=== PATIENT | male | born 1975 | race Caucasian/White ===

== ENCOUNTER → 2024-04-21 06:28 | Day surgery (SDC) | payer BC, SELFPAY | LOC: GI 06:28 | PROVIDERS: ATTENDING PHYSICIAN Internal Medicine Gastroenterology | DX: Z12.11 Encounter for screening for malignant neoplasm of colon (principal); K64.8 Other hemorrhoids; K57.30 Diverticulosis of large intestine without perforation or abscess without bleeding; D12.4 Benign neoplasm of descending colon; D12.5 Benign neoplasm of sigmoid colon | CPT/HCPCS: 45385; 45380; 88305 ==

== ENCOUNTER 2025-04-05 18:50 | Inpatient (IN) | payer BC, SELFPAY ==
[2025-04-04 23:19] VITALS: BP 127/107
[2025-04-04 23:44] LABS: Hematocrit 45.7 % (39.0-52.0); Hemoglobin 16.3 g/dL (13.0-18.0); Mean Corp Hgb Conc. 35.7 g/dL (33.0-37.0); Mean Corpuscular Volume 86.1 fL (80.0-94.0); Platelet Count 207 10^3/uL (130-400); Red Cell Dist. Width 12.0 % (11.5-14.5)
[2025-04-05] VITALS (14 sets, daily range): BP systolic 120–134; BP diastolic 66–83; BMI 31.4
[2025-04-05 00:12] LABS: Troponin I 0.015 ng/ml
[2025-04-05 00:20] LABS: ALT (SGPT) 80 U/L (0-50); AST (SGOT) 37 U/L (17-59); Albumin 4.8 g/dl (3.5-5.0); Alkaline Phosphatase 92 U/L (38-126); Blood Urea Nitrogen 15 mg/dl (9-20); Calcium 10.1 mg/dl (8.4-10.2); Carbon Dioxide 29 mmol/L (22-30); Chloride 105 mmol/L (98-107); Glucose 147 mg/dl (70-99); Lipase 117 U/L (23-300); Potassium 4.0 mmol/L (3.5-5.1); Sodium 141 mmol/L (135-145); Total Protein 7.1 g/dl (6.3-8.2); eGFR > 60.00
[2025-04-05 04:02] LABS: Troponin I < 0.012 ng/ml
[2025-04-05] MEDS: NSS 500 IV (04:25)
[2025-04-05] MEDS: PROTONIX IV 40 MG IV (04:26)
[2025-04-05] MEDS: PEPCID 20 MG IV (04:26)
[2025-04-05] MEDS: MAALOX 50 PO (04:26)
--- NOTE | 2025-04-05 05:23 | ED.GENMED ---
History of Present Illness
<Ria Alexander PA-C - Last Filed: 04/05/25 23:01>
General
Chief Complaint: Abdominal Symptoms
Source: patient
Exam Limitations: none
Time Seen by Provider: 04/05/25 03:44
Nursing documentation reviewed up to this point in time: agreed with
History of Present Illness
History of Present Illness:
Note:
CHIEF COMPLAINT(S)
Reflux-type chest and stomach pain.
HISTORY OF PRESENT ILLNESS
The patient is a 50-year-old male with a history of chronic esophagitis presenting with reflux-type chest and stomach pain. The pain began this evening after eating dinner. The patient reports experiencing this type of pain associated with
esophagitis in the past and manages it with omeprazole every four months for two-week intervals, although he last took it in early last month. He observes that Tums typically alleviates his symptoms, but occasionally uses Pepto-Bismol. However,
these interventions have not been effective today after a meal. The pain began today and is noted both in the chest, presenting with heartburn, and the stomach, presenting with pressure. The pain is similar, albeit slightly worse than usual. It
radiates to the upper back, although that component has somewhat faded. The patient experiences a sensation cheryl to vomiting and forced himself to vomit earlier, which did not provide relief, and reports no presence of blood during vomiting. He
denies any history of ulcers or dark, tarry stools. 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 The patient noted that walking improves
symptoms. No daily use of non-steroidal anti-inflammatory drugs was reported. Alcohol consumption occurred once a month to excess.
PHYSICAL EXAM
Nursing notes reviewed and vital signs reviewed.
General: Patient is well appearing and in no acute distress; non-toxic
Skin: Warm and dry, no rashes or lesions
Head: Normocephalic, atraumatic
Eyes: Sclera non-icteric. EOMs intact.
Cardiac: Regular rate and rhythm, no murmurs, no tenderness to palpation of external chest wall
Peripheral Vascular: No lower extremity swelling or edema
Pulm: Normal respiratory effort, no wheezes, rales, rhonchi
Abdomen: Epigastric tenderness palpation noted, mild right side tenderness noted no rebound tenderness no guarding
Neuro: CN II-XII intact, no focal neurologic deficits.
Psychiatric: Appropriate mood and affect.
PLAN
- Administer a gastrointestinal cocktail containing Maalox, , and viscous lidocaine for symptom relief.
- Consider an abdominal ultrasound if symptoms suggest gallbladder or pancreatic involvement persist.
- Monitor for response to treatment and potential need for intravenous medication administration.
DIFFERENTIAL DIAGNOSIS
The Differential Diagnosis includes, in no particular order and is not limited to:
1. Gastroesophageal reflux disease (GERD)
2. Peptic ulcer disease
3. Esophagitis
4. Gallbladder disease (cholelithiasis or cholecystitis)
5. Pancreatitis
6. Myocardial ischemia
7. Costochondritis
8. Gastritis
9. Esophageal spasm
10. Functional dyspepsia
CHART REVIEW
Reviewed discharge summary from 09/11/2020 patient seen for esophagitis without bleeding
UPDATE
GI cocktail and Pepcid did not alleviate symptoms. He states that his pain is no different than before. Will initiate Carafate.
Case signed out to Sharri VALERO at 7 AM pending ultrasound results.
Past History
<Ria Alexander PA-C - Last Filed: 04/05/25 23:01>
Past History
ED Past Medical History: Other (Esophagitis)
Social History
Tobacco: Non-smoker
Alcohol: None
Personal: Single
Employment: Employed
Family History
Family History: Other (father with dysphasia); Negative Early CAD
Phy Exam
<ROSA Thompson - Last Filed: 04/05/25 10:12>
Physical Exam
Physical Exam:
see chart
General Physical Exam
General Presentation: no apparent distress
Course
<Ria Alexander PA-C - Last Filed: 04/05/25 23:01>
Orders/Labs/Results
Orders:
Orders
04/04/25 23:23
EKG [Electrocardiogram (*1)] Urgent
Reason for Study: Abdominal Pain
EKG- Treatment ONCE
04/04/25 23:35
Complete Blood Count/No Diff Urgent
Comprehensive Metabolic Panel Urgent
Lipase Urgent
Troponin I Urgent
04/05/25 02:39
EKG [Electrocardiogram (*1)] Urgent
Reason for Study: Abdominal Pain
04/05/25 02:40
EKG- Treatment ONCE
04/05/25 03:19
Troponin I Urgent
04/05/25 04:07
0.9% Sodium Chloride 500 ml [Nss] 500 ml IV BOLUS
Mag Hydrox/Al Hydrox/Simeth [Maalox] 30 ml Phenobarb/Hyoscy/Atropine/Scop [] 10 ml Viscous Lidocaine 2% [Xylocaine Viscous Cup] 10 ml PO NOW
Pantoprazole [Protonix IV] 40 mg IV NOW STA
US Abdomen Complete/Upper Urgent
Comment:
Reason For Exam: epigastric pain
04/05/25 04:10
Famotidine [Pepcid] 20 mg IV NOW STA
04/05/25 04:14
Phenobarb/Hyoscy/Atropine/Scop [] 10 ml .ROUTE .STK-MED ONE
04/05/25 04:15
Mag Hydrox/Al Hydrox/Simeth [Maalox] 30 ml .ROUTE .STK-MED ONE
Viscous Lidocaine 2% [Xylocaine Viscous Cup] 15 ml .ROUTE .STK-MED ONE
04/05/25 05:46
Sucralfate Suspension [Carafate Suspension] 1 gm PO NOW STA
04/05/25 09:18
Ketorolac [Toradol] 15 mg IV NOW STA
04/05/25 Lunch
NPO
Allow oral meds: Yes
Allow clear liquids: 4hrs prior to procedure
Comment: may have unrestricted clear liquid up to 4 hrs prior to scheduled procedure
04/05/25 10:07
Admit Patient As Directed
Co-Sign Provider:
Level of Care: Post Proc/Surg Recovery
Assign to:: Medical/Surgical
Physician / Group: Scott / ERIC
Diagnosis: Acute cholecystitis
Reason for Overnight Stay: Standard of Care
Code Status As Directed
Resuscitation Status: Full Code
HYDROmorphone [Dilaudid] 0.5 mg IV Q2HPRN PRN
Ondansetron Injectable [Zofran] 4 mg IV Q6HPRN PRN
Activity As Directed
Activity Level: Ambulate
Intake/ Output As Directed
Frequency: Per unit guidelines
Vital Signs As Directed
Frequency: Per unit guidelines
PRN Pain Medication Management As Directed
May give lesser potent ordered pain med per pt: Yes
preference::
Protocol:: Medication orders for pain may be administered in a
manner that supports deferring to patient preference
when the pt is:
- Requesting an ordered lesser potent pain medication.
Least to most potent pain medications are defined
as: acetaminophen < NSAID < tramadol < opioids
(morphine, oxycodone, hydromorphone).
- Requesting a lesser dose of the same medication IF
ORDERED.
- Requesting a less intrusive route of administration
if both routes are prescribed by the provider (PO <
IV).
04/05/25 10:08
Pneumatic Compression Sleeves As Directed
Type: Knee high
O2 Therapy [RESP] Routine
Titrate/Wean O2 to maintain O2 sat greater than (%): 90
Rx Incentive Spirometry [RESP] Routine
Frequency: q1h while awake
# of times per hour: 10
DX Deep Vein Thrombosis Video Routine
04/05/25 10:15
Normosol (Mult Electrolytes) [Normosol-R/Plasmalyte-A] 1,000 ml IV 100 mls/hr
04/05/25 11:00
Flush (0.9% Sodium Chloride) [Flush (Nss)] See Dose Instructions IV PER PROTOCOL
04/05/25 12:00
Acetaminophen [Tylenol] 650 mg PO Q4HWA
Piperacillin/Tazo 3.375 Gram [Zosyn] 3.375 gram in 50 ml IV Q6H
04/05/25 Dinner
Clear Liquid
At Your Request: Full Participation
04/05/25 18:47
Admit Patient As Directed
Co-Sign Provider:
Level of Care: Inpatient admission
Assign to:: Medical/Surgical
Physician / Group: Scott / ERIC
Diagnosis: Acute cholecystitis
Reason for Hospitalization: Cholecystitis
Expected length of stay greater than two midnights?: Yes
ELOS- Estimated Length of Stay in days: 2
I certify the patient meets the requirements for IP care: Yes
PRN Pain Medication Management As Directed
May give lesser potent ordered pain med per pt: Yes
preference::
Protocol:: Medication orders for pain may be administered in a
manner that supports deferring to patient preference
when the pt is:
- Requesting an ordered lesser potent pain medication.
Least to most potent pain medications are defined
as: acetaminophen < NSAID < tramadol < opioids
(morphine, oxycodone, hydromorphone).
- Requesting a lesser dose of the same medication IF
ORDERED.
- Requesting a less intrusive route of administration
if both routes are prescribed by the provider (PO <
IV).
04/06/25 Breakfast
NPO
Allow oral meds: Yes
Allow clear liquids: No
04/06/25 08:00
0.9% Sodium Chloride [Nss (Preservative Free)] 10 ml IV DAILY
Pantoprazole [Protonix IV] 40 mg IV DAILY
04/06/25 18:00
Enoxaparin Sodium [Lovenox] 40 mg SC QPM
Abnormal Lab Results
04/04/25
23:35
WBC 11.0 H 10^3/uL
(4.8-10.8)
Creatinine 1.4 H mg/dL
(0.7-1.3)
Glucose 147 H mg/dl
(70-99)
ALT 80 H U/L
(0-50)
04/04/25 23:35
04/04/25 23:35
Vital Signs
Initial and Last Documented VS:
Initial Vital Signs
Temp Pulse Resp BP Pulse Ox
98.4 F 58 16 127/107 100
04/04/25 23:19 04/04/25 23:19 04/04/25 23:19 04/04/25 23:19 04/04/25 23:19
Last Documented Vital Signs
Temp Pulse Resp BP Pulse Ox
98.8 F 67 18 126/69 98
04/05/25 17:50 04/05/25 17:50 04/05/25 17:50 04/05/25 17:50 04/05/25 17:50
<ROSA Thompson - Last Filed: 04/05/25 10:12>
Orders/Labs/Results
Orders:
Orders
04/04/25 23:23
EKG [Electrocardiogram (*1)] Urgent
Reason for Study: Abdominal Pain
EKG- Treatment ONCE
04/04/25 23:35
Complete Blood Count/No Diff Urgent
Comprehensive Metabolic Panel Urgent
Lipase Urgent
Troponin I Urgent
04/05/25 02:39
EKG [Electrocardiogram (*1)] Urgent
Reason for Study: Abdominal Pain
04/05/25 02:40
EKG- Treatment ONCE
04/05/25 03:19
Troponin I Urgent
04/05/25 04:07
0.9% Sodium Chloride 500 ml [Nss] 500 ml IV BOLUS
Mag Hydrox/Al Hydrox/Simeth [Maalox] 30 ml Phenobarb/Hyoscy/Atropine/Scop [] 10 ml Viscous Lidocaine 2% [Xylocaine Viscous Cup] 10 ml PO NOW
Pantoprazole [Protonix IV] 40 mg IV NOW STA
US Abdomen Complete/Upper Urgent
Comment:
Reason For Exam: epigastric pain
04/05/25 04:10
Famotidine [Pepcid] 20 mg IV NOW STA
04/05/25 04:14
Phenobarb/Hyoscy/Atropine/Scop [] 10 ml .ROUTE .STK-MED ONE
04/05/25 04:15
Mag Hydrox/Al Hydrox/Simeth [Maalox] 30 ml .ROUTE .STK-MED ONE
Viscous Lidocaine 2% [Xylocaine Viscous Cup] 15 ml .ROUTE .STK-MED ONE
04/05/25 05:46
Sucralfate Suspension [Carafate Suspension] 1 gm PO NOW STA
04/05/25 09:18
Ketorolac [Toradol] 15 mg IV NOW STA
04/05/25 Lunch
NPO
Allow oral meds: Yes
Allow clear liquids: 4hrs prior to procedure
Comment: may have unrestricted clear liquid up to 4 hrs prior to scheduled procedure
04/05/25 10:07
Admit Patient As Directed
Co-Sign Provider:
Level of Care: Post Proc/Surg Recovery
Assign to:: Medical/Surgical
Physician / Group: Scott / ERIC
Diagnosis: Acute cholecystitis
Reason for Overnight Stay: Standard of Care
Code Status As Directed
Resuscitation Status: Full Code
HYDROmorphone [Dilaudid] 0.5 mg IV Q2HPRN PRN
Ondansetron Injectable [Zofran] 4 mg IV Q6HPRN PRN
Activity As Directed
Activity Level: Ambulate
Intake/ Output As Directed
Frequency: Per unit guidelines
Vital Signs As Directed
Frequency: Per unit guidelines
PRN Pain Medication Management As Directed
May give lesser potent ordered pain med per pt: Yes
preference::
Protocol:: Medication orders for pain may be administered in a
manner that supports deferring to patient preference
when the pt is:
- Requesting an ordered lesser potent pain medication.
Least to most potent pain medications are defined
as: acetaminophen < NSAID < tramadol < opioids
(morphine, oxycodone, hydromorphone).
- Requesting a lesser dose of the same medication IF
ORDERED.
- Requesting a less intrusive route of administration
if both routes are prescribed by the provider (PO <
IV).
04/05/25 10:08
Pneumatic Compression Sleeves As Directed
Type: Knee high
O2 Therapy [RESP] Routine
Titrate/Wean O2 to maintain O2 sat greater than (%): 90
Rx Incentive Spirometry [RESP] Routine
Frequency: q1h while awake
# of times per hour: 10
DX Deep Vein Thrombosis Video Routine
04/05/25 10:15
Normosol (Mult Electrolytes) [Normosol-R/Plasmalyte-A] 1,000 ml IV 100 mls/hr
04/05/25 11:00
Flush (0.9% Sodium Chloride) [Flush (Nss)] See Dose Instructions IV PER PROTOCOL
04/05/25 12:00
Acetaminophen [Tylenol] 650 mg PO Q4HWA
Piperacillin/Tazo 3.375 Gram [Zosyn] 3.375 gram in 50 ml IV Q6H
04/05/25 Dinner
Clear Liquid
At Your Request: Full Participation
04/05/25 18:47
Admit Patient As Directed
Co-Sign Provider:
Level of Care: Inpatient admission
Assign to:: Medical/Surgical
Physician / Group: Scott / ERIC
Diagnosis: Acute cholecystitis
Reason for Hospitalization: Cholecystitis
Expected length of stay greater than two midnights?: Yes
ELOS- Estimated Length of Stay in days: 2
I certify the patient meets the requirements for IP care: Yes
PRN Pain Medication Management As Directed
May give lesser potent ordered pain med per pt: Yes
preference::
Protocol:: Medication orders for pain may be administered in a
manner that supports deferring to patient preference
when the pt is:
- Requesting an ordered lesser potent pain medication.
Least to most potent pain medications are defined
as: acetaminophen < NSAID < tramadol < opioids
(morphine, oxycodone, hydromorphone).
- Requesting a lesser dose of the same medication IF
ORDERED.
- Requesting a less intrusive route of administration
if both routes are prescribed by the provider (PO <
IV).
04/06/25 Breakfast
NPO
Allow oral meds: Yes
Allow clear liquids: No
04/06/25 08:00
0.9% Sodium Chloride [Nss (Preservative Free)] 10 ml IV DAILY
Pantoprazole [Protonix IV] 40 mg IV DAILY
04/06/25 18:00
Enoxaparin Sodium [Lovenox] 40 mg SC QPM
Abnormal Lab Results
04/04/25
23:35
WBC 11.0 H 10^3/uL
(4.8-10.8)
Creatinine 1.4 H mg/dL
(0.7-1.3)
Glucose 147 H mg/dl
(70-99)
ALT 80 H U/L
(0-50)
04/04/25 23:35
04/04/25 23:35
Vital Signs
Initial and Last Documented VS:
Initial Vital Signs
Temp Pulse Resp BP Pulse Ox
98.4 F 58 16 127/107 100
04/04/25 23:19 04/04/25 23:19 04/04/25 23:19 04/04/25 23:19 04/04/25 23:19
Last Documented Vital Signs
Temp Pulse Resp BP Pulse Ox
98.8 F 67 18 126/69 98
04/05/25 17:50 04/05/25 17:50 04/05/25 17:50 04/05/25 17:50 04/05/25 17:50
<Ria Alexandre PA-C - Last Filed: 04/05/25 23:01>
*Pulse Oximetry
SaO2: 98
Oxygen Mode of Delivery: Room air
<ROSA Thompson - Last Filed: 04/05/25 10:12>
*Radiology
Radiology exam reviewed: radiology read reviewed
*Pulse Oximetry
Patient hypoxic: no
*Critical Care Note
Total Time (30-74mins, 75-104mins- exclusive of procedures): Not Applicable
<ROSA Thompson - Last Filed: 04/05/25 10:12>
Patient Management
Discussion with other providers: Information Services Manager (surg Dr Chavez )
<ROSA Thompson - Last Filed: 04/05/25 10:12>
Update Note
Update Note:
Received signout on patient. Patient back from CAT scan continues to have upper abdominal pain. On my exam he is tender in the right upper quadrant. Ultrasound report shows cholelithiasis with mild gallbladder wall thickening suspicious for acute
cholecystitis. With continued symptoms would recommend admission. Toradol ordered. Case reviewed with admitting hospitalist and surgery. Surgery has reviewed the case and admitted to his service.
ED Attending Note
<Ria Alexander PA-C - Last Filed: 04/05/25 23:01>
-
Portions of this chart may have been created with voice recognition software.� Occasional wrong word or��sound alike� substitutions may have occurred due to the inherent limitations of voice recognition software.
Discharge Plan
Departure
Patient Disposition: Admit
Date of Disposition: 04/05/25
Time of Disposition: 09:27
Admit to: Med/Surg
Admit to doctor: DR Chavez surg
Presentation/result/management discussed w/ accepting MD/DO: Jazmin
Patient with high blood pressure during this ER visit?: Yes
Condition: Fair
Covid-19: Not Applicable
Discharge Problem:
Acute upper abdominal pain
Interventions
Interventions:
*Risk Screen - Suicide Last Done: 04/05/25 17:57
*General Assessment Last Done: 04/05/25 03:31
*Neglect/Abuse Screening Last Done: 04/05/25 03:31
*ED- Fall Risk Assessment Last Done: 04/05/25 03:31
*ED COVID-19 Vaccine History Last Done: 04/05/25 03:31
*Nursing Disposition Last Done: 04/05/25 17:15
AI-Etgjyx-Ytbelzggdy Assessment Last Done: 04/05/25 03:31
Discharge Date and Time
Discharge Date/Time: 04/05/25 17:42
--- NOTE | 2025-04-05 10:01 | CON.GS ---
Medical History
-
Chief Complaint: Abdominal pain
History of Present Illness:
Patient is a 50 yo M with a PMH of obesity and GERD who presents with 12 hours of epigastric and RUQ abdominal pain. Mr. Downing states that his symptoms began acutely yesterday evening. He does report having some Sinhala fries earlier in the day.
He denies any prior attacks of similar pain. He describes severe epigastric pain which he initially attributed to a severe episode of reflux. He attempted treatment with his typical PPI which did not relieve his symptoms prompting further
presentation to the ED. Pain has now radiated more to the RUQ. Associated nausea, but no vomiting. Denies any jaundice, pale stools, or tea colored urine. Family history unremarkable.
Past Medical History
Past Medical History: GERD and Other (Obesity)
Past Surgical History: Orthopedic
Social History
Tobacco: Non-Smoker
Alcohol: None
Drug: None
Personal: Single
Employment: Employed
Family History
Family History: Reviewed & Noncontributory
Allergies / Home Medications
Allergy/AdvReac Type Severity Reaction Status Date / Time
Cephalosporins Allergy Mild Unknown Verified 04/05/25 03:37
penicillin V Allergy Unknown Verified 04/05/25 03:37
Penicillins Allergy Unknown Verified 04/05/25 03:37
�Medication �Instructions �Recorded �Confirmed �Type
loratadine 10 mg tablet 10 mg PO DAILY PRN allergies 09/10/20 04/05/25 History
pantoprazole 40 mg tablet,delayed 40 mg PO DAILY 30 days #30 tabs 09/11/20 04/05/25 Rx
release
Review of Systems
-
A 10 point review of systems was completed, and was negative except as per HPI.
Physical Exam
Vital Signs
Temp Pulse Resp BP Pulse Ox
98.4 F 61 23 126/83 98
04/05/25 02:44 04/05/25 05:00 04/05/25 04:45 04/05/25 05:00 04/05/25 05:23
04/04/25 04/05/25 04/06/25
06:59 06:59 06:59
Actual Weight 96.4 kg
Body Mass Index (BMI) 31.4
Lab Results
04/04/25 23:35
04/04/25 23:35
WBC 11.0 10^3/uL (4.8-10.8) H 04/04/25 23:35
Hgb 16.3 g/dL (13.0-18.0) 04/04/25 23:35
Hct 45.7 % (39.0-52.0) 04/04/25 23:35
Plt Count 207 10^3/uL (130-400) 04/04/25 23:35
Physical Exam
General: Well Developed, Well Nourished and No Apparent Distress
HEENT: Normocephalic and Anicteric
Respiratory: Non Labored Respirations
Cardiac: Regular Rhythm
GI: Soft, Non Distended, Tender (Epigastrium and RUQ, positive Edward's sign), Obese and Other ( Nonperitoneal)
Musculoskeletal: No Edema
Skin: Warm and Dry
Neuro: Nonfocal/Grossly Intact
Data Reviewed
-
Ultrasound: Image Personally Visualized and interpreted and Report Reviewed by me
Labs: Labs Reviewed by me
Assessment / Plan
-
Patient is a 50 yo M p/w acute cholecystitis
The natural history and pathophysiology of biliary and stone disease was discussed. Anatomy was reviewed. Workup thus far including ultrasound and labs were reviewed. Options for management including medical management with a low-fat diet and
antibiotics versus surgical management with cholecystectomy were considered and discussed. Given his persistent pain recommend cholecystectomy.
Plan for MIS cholecystectomy with possible cholangiogram. The procedure itself, as well as the risks, benefits, and alternatives was discussed. Specifically, we discussed the risks of bleeding, infection, injury to surrounding structures (bowel,
bile ducts), CBD injury, need for open procedure. Typical postprocedural coverage was discussed. All questions answered.
-- Admit to hospital
-- Laparoscopic cholecystectomy, timing TBD
-- NPO, IVF (pending timing of above may be able to have clears for today)
-- Pain control: Tylenol and IV Dilaudid as needed
-- DVT: Lovenox
-- GI: PPI
[2025-04-05] MEDS: DILAUDID 0.5 MG IV ×4 (10:46→23:56)
[2025-04-05] MEDS: ZOFRAN 4 MG IV ×2 (10:47→17:06)
[2025-04-05] MEDS: NORMOSOL-R/PLASMALYTE-A 1000 IV ×2 (11:19→22:21)
[2025-04-05] MEDS: TYLENOL PO ×2 (13:14→16:26)
[2025-04-05] MEDS: ZOSYN 50 IV ×3 (13:32→23:56)
--- NOTE | 2025-04-05 17:17 | EDRN ---
this RN called the receiving unit and notified them that paper report was going to be tubed up
[2025-04-05] MEDS: TYLENOL 650 MG PO ×2 (20:15→23:56)
[2025-04-06] VITALS (15 sets, daily range): BP systolic 103–137; BP diastolic 63–80
[2025-04-06] MEDS: TYLENOL 650 MG PO ×5 (05:00→23:05)
[2025-04-06] MEDS: ZOSYN 50 IV ×3 (05:03→23:05)
[2025-04-06] MEDS: PROTONIX IV 40 MG IV (08:52)
[2025-04-06] MEDS: NSS (PRESERVATIVE FREE) 10 ML IV (08:53)
[2025-04-06] MEDS: NORMOSOL-R/PLASMALYTE-A 1000 IV (09:11)
--- NOTE | 2025-04-06 10:12 | W.PN.UPDATE ---
Update Note
Progress Note Update
OCTOR for lap vs robot CCY today. D/w patient. Informed consent obtained. All ?s answered.
[2025-04-06] MEDS: TYLENOL PO (12:39)
--- NOTE | 2025-04-06 13:18 | W.IMMPOSTOP ---
Addendum entered and electronically signed by Chino Garcia MD 04/06/25 13:28:
updated by phone.
Original Note:
Surgical Immed Post Op Note
-
Primary Surgeon: Radha
Pre-op Diagnosis: Acute calculous cholecystitis
Post-op Diagnosis: Same
Procedure Performed: Robotic cholecystectomy and intraoperative near-infared evaluation of major extrahepatic bile ducts
Anesthesia Type: GETA
Specimen / Cultures: Gallbladder
Estimated Blood Loss: 10cc
Complications: None immediate
Operative Findings: Tensely distended hydropic gallbladder with patchy gangrenous changes and yellow pus
--- NOTE | 2025-04-06 13:20 | OR.RPT ---
Operative Report
Operative Report
DOS: 04/06/25
Primary Surgeon: Radha
Pre-op Diagnosis: Acute calculous cholecystitis
Post-op Diagnosis: Same
Procedure Performed: Robotic cholecystectomy and intraoperative near-infared evaluation of major extrahepatic bile ducts
Anesthesia Type: GETA
Specimen / Cultures: Gallbladder
Estimated Blood Loss: 10cc
Complications: None immediate
Operative Findings: Tensely distended hydropic gallbladder with patchy gangrenous changes and yellow pus
Indications: This 50M developed right upper quadrant/epigastric pain and on workup was found to have acute calculous cholecystitis. His liver function studies were normal except for an isolated mild elevation of ALT. No dilation of common duct was
noted on ultrasound, it measured 4mm. Laparoscopic cholecystectomy with robotic assist was elected.
Description of procedure: The patient was placed on the operating table in the supine position. General anesthesia was induced. A time-out was completed verifying correct patient, procedure, site, positioning, and special equipment prior to
beginning this procedure. An orogastric tube was placed. The abdomen was prepped and draped in the usual sterile fashion. A stab incision was made in left upper quadrant and the Veress needle was inserted. Proper position was confirmed by aspiration
and saline meniscus test. The abdomen was insufflated with carbon dioxide to a pressure of 12 mmHg. The patient tolerated insufflation well.
An 8mm optical trocar was then inserted in the left upper quadrant. The laparoscope was inserted and the abdomen inspected. No injuries from initial trocar placement or Veress needle insertion were noted. Additional 8mm trocars were then inserted in
the following locations: above the umbilicus, at the right mid clavicular line at the level of the umbilicus and 6cm lateral to this on the right. The abdomen was inspected and no abnormalities were found. The table was placed in the reverse
Trendelenburg position with the right side up. The dome of the gallbladder was grasped with an atraumatic grasper and retracted over the dome of the liver. The infundibulum was also grasped with an atraumatic grasper and retracted toward the right
lower quadrant. Dense omental adhesions to the fundus and infundibulum were taken down with gentle blunt sweeps. This maneuver exposed Calot�s triangle. The peritoneum overlying the gallbladder infundibulum was then incised and the cystic duct and
cystic artery identified and circumferentially dissected so that a clear view of the liver was achieved through a window between the cystic duct an cystic artery. This area had wall thickening and inflamed tissue. At this time, the only two
structures going into the gallbladder were the cystic artery and cystic duct. ICG was used to visualize the cystic and common ducts and the common duct was protected.
The cystic duct was then doubly clipped and divided and the and cystic artery was controlled with bipolar and divided. Both structures were taken close to the gallbladder. The gallbladder was then dissected from its peritoneal attachments by
electrocautery. Hemostasis was assured and the gallbladder and contained stones were removed using an endoscopic retrieval bag placed through the umbilical port. The gallbladder was passed off the table as a specimen. The gallbladder fossa was
irrigated with copious sterile saline and hemostasis was assured. There was no evidence of bleeding from the gallbladder fossa or cystic artery or leakage of the bile from the cystic duct stump. The umbilical trocar site was closed at the fascial
level laparoscopically with 2-0 PDS. Secondary trocars were removed under direct vision and noted to be hemostatic. The laparoscope was withdrawn and the umbilical trocar removed. The abdomen was allowed to collapse. The skin was closed with
subcuticular sutures of 4-0 monocryl and topical skin adhesive. The orogastric tube was removed.
The patient tolerated the procedure well and was taken to the postanesthesia care unit in stable condition.
[2025-04-06] MEDS: DILAUDID 0.25 MG IV ×2 (13:51→14:08)
[2025-04-06] MEDS: ZOSYN IV (13:57)
--- NOTE | 2025-04-06 14:54 | CM ---
Isis planned. Initial assessment completed with patient with in room. Patient lives with his in a 1 story condo with no steps to enter. 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 No DME
or in-home services. No HC-POA. PCP is [facility] and CLAIMS ADJUDICATOR is Torrey Levine. Pharmacy is [facility] on [address] in [place]. Discharge Plan of Care: Home with no needs.
--- NOTE | 2025-04-06 15:09 | PTCARENOTE ---
Pt arrived to [facility] from PACU with 1L of O2 at 97%. Pt drowsy but easily arousable to verbal. 4 lap sites and 1 poke site JEFFREY with glue. at bedside. Pt oriented to room and call wilson. Bed locked and in lowest position. Care ongoing.
--- NOTE | 2025-04-06 16:22 | CM ---
CM called admissions and provided correct member id number: [id number].
[2025-04-06] MEDS: LOVENOX 40 MG SC (17:12)
[2025-04-06] MEDS: TORADOL 30 MG IV ×2 (17:12→23:12)
[2025-04-07] MEDS: NORMOSOL-R/PLASMALYTE-A IV (00:34)
[2025-04-07 03:00] VITALS: BP 110/71
[2025-04-07] MEDS: ZOSYN 50 IV ×2 (05:03→11:59)
[2025-04-07] MEDS: TYLENOL PO (05:03)
[2025-04-07 07:05] VITALS: BP 124/63
[2025-04-07] MEDS: PROTONIX IV 40 MG IV (08:12)
[2025-04-07] MEDS: TYLENOL 650 MG PO ×3 (08:12→15:42)
[2025-04-07] MEDS: NSS (PRESERVATIVE FREE) 10 ML IV (08:13)
--- NOTE | 2025-04-07 08:22 | W.PN.GS2 ---
Today's Communication / Plan
-
DC
Assessment / Plan
-
50M POD1 s/p rCCY for ACC
AFVSS, doing well postop, meets benchmarks for DC home
Plan to DC home with PO abx
Subjective Data
-
Date of Service: April 07, 2025
AFVSS, ambulating, voiding, maricruz PO, denies n/v, pain controlled
Objective Data
-
Intake and Output
04/06/25 04/07/25 04/08/25
06:59 06:59 06:59
Intake Total 0 / 1919 980 / 980
Output Total 350 / 350
Balance 0 / 1919 630 / 630
Intake:
Oral fluids 720 / 720 480 / 480
IV fluids (Total) 1100 / 1100 400 / 400
normasol 100 / 100
IV piggybacks 100 / 100 100 / 100
Output:
Urine, Voided 350 / 350
Other:
Number of approximated MODERATE 3 1
amounts of urine
Number of approximated LARGE 1
amounts of urine
Vital Signs
Temp Pulse Resp BP Pulse Ox
98.7 F 74 16 124/63 98
04/07/25 07:05 04/07/25 07:05 04/07/25 07:05 04/07/25 07:05 04/07/25 07:05
Lab Results
04/04/25 23:35
04/04/25 23:35
Calcium 10.1 mg/dl (8.4-10.2) 04/04/25 23:35
Total Bilirubin 0.7 mg/dl (0.2-1.3) 04/04/25 23:35
AST 37 U/L (17-59) 04/04/25 23:35
ALT 80 U/L (0-50) H 04/04/25 23:35
Alkaline Phosphatase 92 U/L (38-126) 04/04/25 23:35
Total Protein 7.1 g/dl (6.3-8.2) 04/04/25 23:35
Albumin 4.8 g/dl (3.5-5.0) 04/04/25 23:35
Physical Exam
-
Gen: NAd
Abd: soft, approp ttp, incisions cdi with expected ecchymosis and glue
Patient has a miller catheter: No
Patient has a central line: No
--- NOTE | 2025-04-07 08:23 | W.DS.TRANS ---
Addendum entered and electronically signed by ROSA Ramos 04/07/25 10:04:
dictated #[id number]
Original Note:
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
-
Discharge Instructions:
Discharge Diagnosis/Procedures Robotic cholecystectomy
Diet No restrictions
Activity No strenuous activity
Bathing Restrictions OK to Shower
Wound Care Allow skin glue to flake off on its own.
Instructions: Cholecystectomy - Discharge instructions
Stand-Alone Forms:
Changes to Home Medications: No
Discharge Medications:
DC Medications w/original date entered in [employer]
diphenhydramine HCl 25 mg capsule (Benadryl) 25 mg PO HSPRN PRN ALLERGIES 04/05/25
levocetirizine 5 mg tablet (Xyzal) 5 mg PO DAILYPRN PRN ALLERGIES 04/05/25
therapeutic multivitamin 1 tab PO DAILY Supplement 04/05/25
tramadol 50 mg tablet 50 mg PO Q6H PRN Pain #30 tabs 04/06/25
Home Medication Changes
Pending Results: No
--- NOTE | 2025-04-07 09:36 | CM ---
CM following re: discharge planning.
Reviewed pt's chart, met with pt.
Pt is POD1 s/p CCY for ACC, AFVSS, doing well postop.
Discharge order noted. Pt is aware, expressed his agreement and pt stated his spouse or mother will transport home.
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
No after care VN services indicated.
D/C plan: home no needs. Family to transport.
[2025-04-07] MEDS: ROXICODONE 5 MG PO (10:16)
[2025-04-07 11:15] VITALS: BP 108/66
[2025-04-07 15:50] VITALS: BP 127/68
== END 2025-04-07 16:20 | disposition home or self-care (01) | DRG 418 ==
LOC: 2 SOUTH 18:50
PROVIDERS: Surgery; ADMITTING PHYSICIAN Surgery; EMERGENCY PHYSICIAN Emergency Medicine; FAMILY PHYSICIAN Family Medicine
PROC: 0FT44ZZ Resection of Gallbladder, Percutaneous Endoscopic Approach (ICD-10-PCS; 2025-04-06)
PROC: 8E0W4CZ Robotic Assisted Procedure of Trunk Region, Percutaneous Endoscopic Approach (ICD-10-PCS; 2025-04-06)
DX: K80.00 Calculus of gallbladder with acute cholecystitis without obstruction (principal); K82.1 Hydrops of gallbladder; K21.00 Gastro-esophageal reflux disease with esophagitis, without bleeding; E66.9 Obesity, unspecified; K66.0 Peritoneal adhesions (postprocedural) (postinfection); K82.A1 Gangrene of gallbladder in cholecystitis; Z68.31 Body mass index [BMI] 31.0-31.9, adult; Z79.899 Other long term (current) drug therapy
CPT/HCPCS: 76700; 80053; 83690; 84484; 85027; 88304; 93005